=== PATIENT | female | born 1960 | race Hispanic/Latino ===

== ENCOUNTER → 2018-11-20 | Day surgery (SDC) | payer OTHER ==
[2018-11-19 16:09] LABS: ANION GAP 12.7 mmol/L (8-16); BLOOD UREA NITROGEN 14 mg/dL (7-26); BUN/CREATININE RATIO 21 (6-25); CALCIUM 10.1 mg/dL (8.4-10.2); CARBON DIOXIDE 26 mmol/L (22-29); CHLORIDE 104 mmol/L (98-107); CREATININE, SERUM 0.68 mg/dL (0.57-1.11); EST GLOMERULAR FILTRATION RATE > 60 ML/MIN (60-); GLUCOSE 98 mg/dL (74-118); POTASSIUM 3.7 mmol/L (3.5-5.1); SODIUM 139 mmol/L (136-145)
[~2018-11-20] MED LIST: BUPIVACAINE HCL 0.5% 10ML MPF VIAL INJ ONE; CEFAZOLIN SOD 1 GM/NS 50ML 50 ML IV ONE; DEXAMETHASONE SOD PHOS INJ 4 MG/ML VIAL ONE; FENTANYL CITRATE/PF 100MCG/2 ML INJ ONE; GINKGO BILOBA40 M1; LEXAPRO10 MG PO; LIDOCAINE HCL 2% LOCAL INJ 5 ML SDV VIAL INJ ONE; LOSARTAN POTASS25 MG; LOVASTATIN20 MG; METFORMIN HCL500 MG PO; MIDAZOLAM HCL 2 MG/2 ML VIAL ONE; MORINGA; PRAMIPEXOLE D0.25 MG; PROPOFOL IV EMULSION 10 MG/ML 20 ML VIAL ONE; TURMERIC1 GM; ZOLPIDEM TARTRAT5 MG PO
[2018-11-20 11:05] VITALS: BP 119/75
--- NOTE | 2018-11-20 16:46 | Operative Report ---
DATE OF PROCEDURE: 11/20/2018 SURGEON: Giovanni England MD BMET: Giovanni Omer PA-C. PREOPERATIVE DIAGNOSIS: Right index trigger finger. POSTOPERATIVE DIAGNOSIS: Right index trigger finger. PROCEDURE: Release of right index trigger finger. INDICATIONS: The patient is a 57-year-old lady, who has stenosing tenosynovitis of her right index finger. She has failed conservative management and would like to proceed with a right index trigger finger release. The risks and benefits were explained. She stated she understood and wished to proceed. PROCEDURE IN DETAIL: The patient was brought to the operating room and placed under general anesthetic. Her right upper extremity was prepped and draped in a sterile manner. A preoperative time-out was performed. The extremity was exsanguinated and a proximal tourniquet was briefly inflated to 250 mmHg. A transverse incision was made in line with the distal palmar crease and the right index finger. The A1 lilian was carefully identified. This was partially released with a 15 blade surgical knife. The release was completed with a pair of tenotomy scissors. The tendon was retracted from the wound to ensure that there was no further stenosing tenosynovitis. The tendon appeared to be in good shape. The incision was then cleaned, closed with two interrupted nylon stitches. 1 mL of 0.5% Marcaine without epinephrine was injected around the incision. A sterile bandage was applied. The patient was extubated and transported to the recovery room in stable condition. There was no blood loss and all needle and sponge counts were correct. Givoanni England MD DR/SHALA /[id number]
== END | disposition home or self-care (01) ==
LOC: OR 07:07
PROVIDERS: ATTEND Specialist
DX: M65.321 Trigger finger, right index finger (principal); M17.12 Unilateral primary osteoarthritis, left knee; E11.9 Type 2 diabetes mellitus without complications; M06.9 Rheumatoid arthritis, unspecified; F32.9 Major depressive disorder, single episode, unspecified; E78.5 Hyperlipidemia, unspecified; T78.40XA Allergy, unspecified, initial encounter; R06.02 Shortness of breath; G25.81 Restless legs syndrome; G47.00 Insomnia, unspecified; F41.9 Anxiety disorder, unspecified; Z01.810 Encounter for preprocedural cardiovascular examination; X58.XXXA Exposure to other specified factors, initial encounter; Z01.812 Encounter for preprocedural laboratory examination; Z79.84 Long term (current) use of oral hypoglycemic drugs; Z68.37 Body mass index [BMI] 37.0-37.9, adult
CPT/HCPCS: 26055; 36415 ×2; 80048; 82948; 93005; J0690; J1100; J2001; J2250; J2704

== ENCOUNTER → 2019-02-26 | Day surgery (SDC) | payer OTHER ==
[2019-02-22 14:28] LABS: ANION GAP 13.3 mmol/L (8-16); BLOOD UREA NITROGEN 11 mg/dL (7-26); BUN/CREATININE RATIO 17 (6-25); CALCIUM 9.8 mg/dL (8.4-10.2); CARBON DIOXIDE 27 mmol/L (22-29); CHLORIDE 103 mmol/L (98-107); CREATININE, SERUM 0.66 mg/dL (0.57-1.11); EST GLOMERULAR FILTRATION RATE > 60 ML/MIN (60-); GLUCOSE 92 mg/dL (74-118); POTASSIUM 4.3 mmol/L (3.5-5.1); SODIUM 139 mmol/L (136-145)
[~2019-02-26] MED LIST changes: +ACETAMINOPHEN 1000 MG/100 ML 100 ML IV ONE; -BUPIVACAINE HCL 0.5% 10ML MPF VIAL INJ ONE; +BUPIVACAINE HCL 0.5% INJ 30 ML VIAL INJ ONE; +CENTRUM COMPLE1 EACH PO; +ONDANSETRON HCL INJ 2MG/ML 2ML 2 MG/ML VIAL ONE; +SEVOFLURANE INHAL SOLN 250 ML PEN BTL ONE; +VITAMIN B PO
--- OUTSIDE RECORDS SUMMARY | 2019-02-26 08:22 | XMS REPORT ---
Author Author [facility], [place] Address Unknown Phone Unavailable Care Team Providers Care Floral Merchandiser Name Role Phone Unavailable Unavailable Problems This patient has no known problems. Allergies, Adverse Reactions, Alerts This patient has no known allergies or adverse reactions. Medications This patient has no known medications. Results Test Description Test Time Test Comments Text Results Atomic Results Result Comments SCR MAMM BILATERAL DILAN CAD DIGITAL 2019-02-06 11:55:49 - SCR MAMM BILATERAL DILAN CAD DIGITALBILATERAL DIGITAL SCREENING MAMMOGRAM 3D/2D WITH CAD: 02/06/2019CLINICAL: Asymptomatic. Digital breast tomosynthesis was performed in addition to routine CC and MLO views. Current mammographic images were evaluated by either a [employer] or a [employer] CAD (computer aided detection system). Comparison is made to exams dated 04/16/2015 mammogram - [facility] and 05/03/2013 mammogram - [facility]. The tissue of both breasts is heterogeneously dense. This may lower the sensitivity of mammography. There is a biopsy clip in the right breast. No suspicious mass, architectural distortion, malignant type calcification, or lymph node abnormality detected. Breast architecture is stable compared to prior exams.IMPRESSION: BENIGNThere is no mammographic evidence of malignancy. Resume annual screening mammography in one year. Luis Enrique davis/lawrence:02/06/2019 11:55:49 Java Support Engineer: Reina Newton FW, [facility] sent: BIRADS 1-2 Normal Mammogram BI-RADS: 2 Benign
--- NOTE | 2019-02-26 10:58 | Operative Report ---
DATE OF PROCEDURE: 02/26/2019 SURGEON: Giovanni England MD SHORT PIECE HANDLER: Giovanni Omer PA-C. PREOPERATIVE DIAGNOSIS: Left third trigger finger. POSTOPERATIVE DIAGNOSIS: Left third trigger finger. PROCEDURE: Release left third trigger finger. INDICATIONS: The patient is a 58-year-old woman, who has clinic signs and symptoms consistent with left third trigger finger. She had a similar situation in the right hand some years ago. She underwent surgical release. She stated she wished to proceed with surgical release on the left hand. The risks and benefits were reviewed. She stated she understood and wished to proceed. PROCEDURE IN DETAIL: The patient was brought to the operating room and placed under general anesthetic. Her left upper extremity was prepped and draped in a sterile manner. A preoperative time-out was performed. The extremity was exsanguinated and a proximal tourniquet was briefly inflated to 250 mmHg. An incision was made in line with the distal flexion crease of the hand in line with the third digit. The A1 lilian was carefully exposed. This was released with a 15 blade surgical knife. The release was completed with a pair of tenotomy scissors. The flexor digitorum profundus and superficialis were retracted from the wound. There was no further stenosing tenosynovitis. There was some mild fraying of the profundus tendon. The wound was irrigated and closed. A 2 mL of 0.5% Marcaine without epinephrine were injected around the incision. A sterile bandage was applied. There was no blood loss and all needle and sponge counts were correct. Giovanni England MD DR/SHALA /[id number]
[2019-02-26 11:35] VITALS: BP 116/90
== END | disposition home or self-care (01) ==
LOC: OR 07:52
PROVIDERS: ATTEND Specialist
DX: M65.332 Trigger finger, left middle finger (principal); I10 Essential (primary) hypertension; E11.9 Type 2 diabetes mellitus without complications; E78.00 Pure hypercholesterolemia, unspecified; G47.00 Insomnia, unspecified; F32.9 Major depressive disorder, single episode, unspecified; F41.0 Panic disorder [episodic paroxysmal anxiety]; Z01.810 Encounter for preprocedural cardiovascular examination; Z01.812 Encounter for preprocedural laboratory examination; Z79.84 Long term (current) use of oral hypoglycemic drugs; Z68.38 Body mass index [BMI] 38.0-38.9, adult
CPT/HCPCS: 26055; 36415 ×2; 80048; 82948; 93005; J0131; J0690; J1100; J2001; J2250; J2405; J2704; J3010